=== PATIENT | male | born 1945 | race Caucasian/White ===

== ENCOUNTER 2019-08-19 13:16 | Observation (INO) ==
[2019-08-19 15:21] LABS: Basophils # 0.1 10*3/uL (0.0-0.2); Basophils % 0.7 % (0.0-0.8); Eosinophils # 0.3 10*3/uL (0.0-0.87); Hematocrit 33.7 VOL% (42.0-52.0); Hemoglobin 10.6 GM/DL (14.0-18.0); Immature Granulocytes % 0.3 %; Immature Granulocytes Absolute 0.03 #; Lymphocytes # 1.8 10*3/uL (1.4-4.0); Lymphocytes % 18.5 % (21.2-54.2); Mean Corpuscular HGB Conc 31.5 GM/DL (32-36); Mean Corpuscular Volume 83.8 FL (87-102); Mean Platelet Volume 9.2 FL (9.6-12.0); Monocytes % 8.2 % (1.7-12.7); Neutrophils % 69.3 % (38.7-73.9); Platelet Count 159 T/CUMM (130-400); Red Blood Count 4.02 MC/CUMM (3.8-5.5); White Blood Count 9.7 T/CUMM (4-12)
[2019-08-19 15:47] LABS: Albumin 3.3 G/DL (3.4-5.0); Bilirubin,Total 0.5 MG/DL (0.2-1.0); Calcium 8.5 MG/DL (8.5-10.1); Osmolality,Calculated 270.1 MOS/KG (273-304); Total Protein 6.6 G/DL (6.4-8.3)
[2019-08-19] MEDS ORDERED: ONDANSETRON 4 MG/2 ML VIAL IV PRN (17:42)
[2019-08-19] MEDS ORDERED: ACETAMINOPHEN 325 MG TABLET PO PRN (17:42)
[2019-08-19] MEDS ORDERED: DEXTROSE 10% 250 ML BAG IV PRN (17:42)
[2019-08-19] MEDS ORDERED: GLUCAGON 1 MG VIAL IM PRN (17:42)
[2019-08-19] MEDS ORDERED: LABETALOL 20 MG/4 ML SYRINGE IV PRN (17:50)
[2019-08-19] MEDS: PIPERACILLIN/TAZOBACTAM 3,375 MG in SODIUM CHLORIDE 0.9% 100 ML IV SCH (18:37)
[2019-08-19] MEDS ORDERED: CYCLOBENZAPRINE 10 MG TABLET PO SCH (21:00)
[2019-08-19] MEDS: GABAPENTIN 300 MG CAPSULE PO SCH (22:44)
[2019-08-19] MEDS: VANCOMYCIN INJ 2,000 MG in SODIUM CHLORIDE 0.9% 500 ML IV SCH (22:44)
[2019-08-20] MEDS: PIPERACILLIN/TAZOBACTAM 3,375 MG in SODIUM CHLORIDE 0.9% 100 ML IV SCH ×3 (02:27→17:26)
[2019-08-20 06:07] LABS: Basophils # 0.1 10*3/uL (0.0-0.2); Eosinophils # 0.4 10*3/uL (0.0-0.87); Eosinophils % 5.1 % (0.00-10.9); Hematocrit 31.6 VOL% (42.0-52.0); Immature Granulocytes % 0.3 %; Immature Granulocytes Absolute 0.02 #; Lymphocytes # 1.8 10*3/uL (1.4-4.0); Lymphocytes % 24.6 % (21.2-54.2); Mean Corpuscular HGB Conc 31.6 GM/DL (32-36); Mean Corpuscular Volume 83.2 FL (87-102); Monocytes % 9.2 % (1.7-12.7); Neutrophils % 59.8 % (38.7-73.9); Platelet Count 160 T/CUMM (130-400); Red Cell Distribution Width 15.9 % (9.3-17.3); White Blood Count 7.3 T/CUMM (4-12)
[2019-08-20 06:31] LABS: Calcium 8.4 MG/DL (8.5-10.1); Osmolality,Calculated 273.8 MOS/KG (273-304)
[2019-08-20] MEDS: allopurinoL 300 MG TABLET PO SCH (08:56)
[2019-08-20] MEDS: RIVAROXABAN 20 MG TABLET PO SCH (08:56)
[2019-08-20] MEDS: GABAPENTIN 300 MG CAPSULE PO SCH ×2 (08:57→22:10)
[2019-08-20] MEDS: ENALAPRIL 10 MG TABLET PO SCH (08:57)
[2019-08-20] MEDS: SERTRALINE 50 MG TABLET PO SCH (08:57)
[2019-08-20] MEDS: VANCOMYCIN INJ 2,000 MG in SODIUM CHLORIDE 0.9% 500 ML IV SCH (12:58)
[2019-08-21] MEDS: VANCOMYCIN INJ 2,000 MG in SODIUM CHLORIDE 0.9% 500 ML IV SCH ×2 (00:27→15:24)
[2019-08-21] MEDS: PIPERACILLIN/TAZOBACTAM 3,375 MG in SODIUM CHLORIDE 0.9% 100 ML IV SCH ×3 (02:39→18:21)
[2019-08-21 06:11] LABS: Basophils # 0.1 10*3/uL (0.0-0.2); Basophils % 1.3 % (0.0-0.8); Eosinophils # 0.4 10*3/uL (0.0-0.87); Hematocrit 33.9 VOL% (42.0-52.0); Hemoglobin 10.6 GM/DL (14.0-18.0); Immature Granulocytes % 0.3 %; Immature Granulocytes Absolute 0.02 #; Lymphocytes # 1.9 10*3/uL (1.4-4.0); Lymphocytes % 27.8 % (21.2-54.2); Mean Corpuscular HGB Conc 31.3 GM/DL (32-36); Mean Corpuscular Volume 84.1 FL (87-102); Mean Platelet Volume 9.6 FL (9.6-12.0); Monocytes % 8.3 % (1.7-12.7); Neutrophils % 56.3 % (38.7-73.9); Platelet Count 191 T/CUMM (130-400); Red Blood Count 4.03 MC/CUMM (3.8-5.5); Red Cell Distribution Width 15.8 % (9.3-17.3)
[2019-08-21 06:28] LABS: Calcium 8.6 MG/DL (8.5-10.1); Osmolality,Calculated 275.5 MOS/KG (273-304)
[2019-08-21] MEDS: SERTRALINE 50 MG TABLET PO SCH (08:42)
[2019-08-21] MEDS: allopurinoL 300 MG TABLET PO SCH (08:42)
[2019-08-21] MEDS: RIVAROXABAN 20 MG TABLET PO SCH (08:42)
[2019-08-21] MEDS: ENALAPRIL 10 MG TABLET PO SCH (08:42)
[2019-08-21] MEDS: GABAPENTIN 300 MG CAPSULE PO SCH ×2 (08:42→21:56)
[2019-08-22] MEDS: VANCOMYCIN INJ 2,000 MG in SODIUM CHLORIDE 0.9% 500 ML IV SCH (02:23)
[2019-08-22] MEDS: PIPERACILLIN/TAZOBACTAM 3,375 MG in SODIUM CHLORIDE 0.9% 100 ML IV SCH (04:59)
[2019-08-22 05:42] LABS: Basophils # 0.1 10*3/uL (0.0-0.2); Basophils % 1.1 % (0.0-0.8); Eosinophils # 0.4 10*3/uL (0.0-0.87); Eosinophils % 6.2 % (0.00-10.9); Hematocrit 33.3 VOL% (42.0-52.0); Hemoglobin 10.5 GM/DL (14.0-18.0); Immature Granulocytes % 0.3 %; Immature Granulocytes Absolute 0.02 #; Lymphocytes % 31.3 % (21.2-54.2); Mean Corpuscular HGB Conc 31.5 GM/DL (32-36); Mean Platelet Volume 9.3 FL (9.6-12.0); Monocytes % 7.8 % (1.7-12.7); Neutrophils % 53.3 % (38.7-73.9); Platelet Count 176 T/CUMM (130-400); Red Blood Count 4.01 MC/CUMM (3.8-5.5); Red Cell Distribution Width 15.5 % (9.3-17.3); White Blood Count 6.3 T/CUMM (4-12)
[2019-08-22 06:02] LABS: Calcium 8.3 MG/DL (8.5-10.1); Osmolality,Calculated 273.7 MOS/KG (273-304)
[2019-08-22] MEDS: RIVAROXABAN 20 MG TABLET PO SCH (09:25)
[2019-08-22] MEDS: SERTRALINE 50 MG TABLET PO SCH (09:25)
[2019-08-22] MEDS: allopurinoL 300 MG TABLET PO SCH (09:25)
[2019-08-22] MEDS: ENALAPRIL 10 MG TABLET PO SCH (09:25)
[2019-08-22] MEDS: GABAPENTIN 300 MG CAPSULE PO SCH (09:25)
[2019-08-22 12:07] VITALS: BP 140/72
[2019-08-23] MEDS ORDERED: LEVOFLOXACIN 500 MG TABLET PO SCH (09:00)
== END 2019-08-22 13:30 | disposition home or self-care (01) ==
LOC: N.EDINP 13:16 → N.ED 13:16 → N.EDINP 20:26 → N.3E 20:34
PROVIDERS: ADMIT Hospitalist; ATTEND Hospitalist